=== PATIENT | male | born 1975 ===

== ENCOUNTER 2023-12-30 22:42 | Outpatient (REF) | payer BC, SELFPAY ==
[2023-12-30 21:31] LABS: HCT 45.6 % (40.0-50.0); HGB 15.2 g/dL (13.5-17.5); MCH 30.7 pg (27.0-33.0); MCHC 33.3 % (32.0-36.0); MCV 92 fL (80-95); MPV 10.8 fL (8.0-11.0); Platelet Count 283 10^3/uL (130-400); RBC 4.95 10^6/uL (4.36-5.78); RDW 12.3 % (11.8-14.1); RDW-SD 41.4 fL; WBC 7.33 10^3/uL (4.4-10.8)
[2023-12-30 21:46] LABS: ALT 26 U/L (16-63); AST 23 U/L (15-37); Albumin 3.8 g/dL (3.4-5.0); Alkaline Phosphatase 75 U/L (46-116); Anion Gap 7.8 mmol/L (3-11); BUN 21 mg/dL (7-18); Bilirubin, Total 0.45 mg/dL (0.2-1.0); CO2 29.2 mmol/L (21.0-32.0); CREATININE 1.3 mg/dL (0.70-1.30); Calcium 8.9 mg/dL (8.5-10.1); Calculated LDL 81 mg/dL (<100); Chloride 108 mmol/L (98-107); Cholesterol 162 mg/dL (<200); Estimated GFR 68.19 (mL/min/1.73m2); Glucose 86 mg/dL (74-106); HDL Cholesterol 58 mg/dL (40-60); Potassium 4.2 mmol/L (3.5-5.1); Sodium 145 mmol/L (136-145); Total Protein 7.1 g/dL (6.4-8.2); Triglyceride 116 mg/dL (<150)
== END 2023-12-30 22:43 | disposition home or self-care (01) ==
LOC: NCHCN 22:42
PROVIDERS: PCP Family Medicine; Visit Provider Family Medicine
DX: R03.0 Elevated blood-pressure reading, without diagnosis of hypertension (principal); Z13.220 Encounter for screening for lipoid disorders; Z13.0 Encounter for screening for diseases of the blood and blood-forming organs and certain disorders involving the immune mechanism
CPT/HCPCS: 80053; 80061; 85027

== ENCOUNTER 2024-11-24 14:35 | Outpatient (REF) | payer BC, SELFPAY ==
[2024-11-24 21:03] LABS: HCT 45.2 % (40.0-50.0); HGB 15.4 g/dL (13.5-17.5); MCH 30.6 pg (27.0-33.0); MCHC 34.1 % (32.0-36.0); MCV 90 fL (80-95); MPV 10.6 fL (8.0-11.0); Platelet Count 282 10^3/uL (130-400); RBC 5.04 10^6/uL (4.36-5.78); RDW 11.9 % (11.8-14.1); RDW-SD 38.5 fL; WBC 6.30 10^3/uL (4.4-10.8)
[2024-11-24 22:54] LABS: ALT 35 U/L (16-63); AST 30 U/L (15-37); Albumin 4.1 g/dL (3.4-5.0); Alkaline Phosphatase 66 U/L (46-116); Anion Gap 7.9 mmol/L (3-11); BUN 13 mg/dL (7-18); Bilirubin, Total 0.6 mg/dL (0.2-1.0); CO2 26.1 mmol/L (21.0-32.0); Calcium 9.1 mg/dL (8.5-10.1); Chloride 106 mmol/L (98-107); Estimated GFR 92.84 (mL/min/1.73m2); Glucose 94 mg/dL (74-106); Potassium 4.3 mmol/L (3.5-5.1); Sodium 140 mmol/L (136-145); TSH (W/Ref FT4) 1.91 uIU/mL (0.36-3.74); Total Protein 7.4 g/dL (6.4-8.2); Vitamin B12 1767 pg/mL (193-986)
[2024-11-25 19:41] LABS: Vitamin D 25 Total 38 ng/mL (30-100)
== END 2024-11-24 14:36 | disposition home or self-care (01) ==
LOC: NCHCN 14:35
PROVIDERS: PCP Family Medicine; Visit Provider Family Medicine
DX: R53.83 Other fatigue (principal)
CPT/HCPCS: 80053; 82306; 85027; 82607; 84443